=== PATIENT | female | born 1935 | race Caucasian/White ===

== ENCOUNTER → 2016-09-12 | Day surgery (SDC) | payer MEDICARE, OTHER ==
[~2016-09-12] MED LIST: CALCIUM + D 6001 TA1 PO; CALCIUM 500 +1 EAC2 PO; FISH OIL 1,0001 CAP PO; GRALISE300 MG PO; MULTI VITAMIN1 EACH PO; NEURONTIN300 MG PO; PANTOPRAZOLE SO40 MG; VITAMIN B12-FO1 EACH PO
--- NOTE | ~2016-09-12 | OR ---
Unit #: [id number] #: [id number] Patient: MARIKA MARTINEZ [id number] [address] [place], [place] [address] [id number] O MR#: [id number] NAME: MARIKA MARTINEZ. ROOM: Date of Procedure: 09/12/2016 Admission Date: 09/12/2016 Surgeon: Santhosh Millan M.D. : 1935 Attending Physician: Santhosh Millan M.D. Primary Care Physician: Fiorella Mcmahon M.D. OPERATIVE REPORT PRIMARY CARE PHYSICIAN Fiorella Mcmahon M.D. PREOPERATIVE DIAGNOSES The patient has presented for colorectal cancer surveillance. She has personal history of colon polyps. In addition, she has lot of nausea and vomiting and dyspepsia. PROCEDURES PERFORMED Upper gastrointestinal endoscopy and biopsy as well as colonoscopy up to cecum and terminal ileum. POSTOPERATIVE DIAGNOSES For upper endoscopy: 1. The patient had distal esophageal benign stricture which was felt to be nonobstructing. In addition, there was evidence of circumferential esophagitis. 2. Small hiatus hernia. 3. Mild prepyloric antral gastritis. A biopsy was obtained from the antrum for CLOtest. 4. Rest of the examination up to third part of duodenum was normal. For colonoscopy: Mild sigmoid and descending colon diverticulosis. Otherwise, normal examination up to cecum and terminal ileum. The quality of the prep was excellent. RECOMMENDATIONS No further colonoscopy is indicated in view of patient's age. She was started on pantoprazole 40 mg p.o. daily and will be followed up in the office in 3 months' time. SEDATION USED MAC. DESCRIPTION OF PROCEDURE Following detailed explanation of potential risks and complications of an upper endoscopy and a colonoscopy, namely perforation, bleeding, and complication related to sedation, the patient was brought to GI lab and laid in the left lateral decubitus position. Lubricated tip of the Olympus video upper endoscope was passed through the bite block into the proximal esophagus under direct vision. The entire esophageal mucosa was examined. The patient was noted to have distal confluent ulcerative esophagitis as well as early esophageal stricture. In addition, a small Unit #: [id number] #: [id number] Patient: MARIKA MARTINEZ hiatus hernia was noted. The scope was then advanced into the gastric cavity and the latter was insufflated. Mucosa of the fundus, body, and antrum was examined and prepyloric antral erythema erosions were noted indicating antral gastritis. Pylorus was intubated with visualization of the normal duodenal bulb and second and third part of the duodenum. Upon withdrawal and retroflexion; incisura, cardia, and greater curve was examined and biopsy was obtained from the antrum for CLOtest. The scope was then withdrawn in the distal esophagus. The entire esophageal mucosa was examined all the way up to pharynx. No additional findings were noted. The examination table was then turned by 180 degrees and the patient positioned for a colonoscopy. A digital rectal examination was performed, which was normal. Lubricated tip of the Olympus video colonoscope was inserted through the anus and advanced under direct vision. The scope was advanced past rectosigmoid into descending colon. Multiple medium-sized diverticula were seen in this area. The scope tip was then navigated all the way up to cecum with visualization of the ileocecal valve and the appendiceal orifice. Preparation was excellent with good visualization and photodocumentation was obtained. Last several inches of the terminal ileum were also visualized after intubation of the ileocecal valve and appeared normal. Successive segments of the colonic mucosa were examined upon withdrawal and appeared unremarkable. There being no polyps, mass lesions, or AVMs. Other than the scant diverticula seen in the left side, no other abnormalities were noted. The patient did not have any hemorrhoids at the anal verge. The scope was then withdrawn and the patient returned to the recovery area. She tolerated the procedure without any postprocedure complications. ADDENDUM The patient was found to have uncontrolled atrial fibrillation. She seemingly is not aware of this fact. Therefore, a Cardiology consult was obtained prior to the patient being discharged home. Dictated by... Nayeli Oliva TD: 09/12/2016 13:23 JOB #: [id number] OPERATIVE REPORT Page 1 of 1 X Santhosh Millan MD X PROCEDURE OPERATIVE NOTE
--- NOTE | ~2016-09-12 | EKG ---
PATIENT: MARIKA MARTINEZ UNIT #: [id number] Ventricular Rate: 92 BPM Atrial Rate: 85 BPM QRS Duration: 86 ms Q-T Interval: 368 ms QTC Calculation(Bezet): 455 ms Calculated R [place]: 62 degrees Calculated T [place]: 76 degrees Diagnosis Line: Atrial fibrillation with premature ventricular or Diagnosis Line: aberrantly conducted complexes Diagnosis Line: Abnormal ECG Diagnosis Line: No previous ECGs available Diagnosis Line: Confirmed by WINNIE REVELES MD ([id number]) on 09/12/2016 Diagnosis Line: 7:48:24 PM INTERPRETING MD: ABDIRIZAK VACA
--- NOTE | ~2016-09-12 | CO ---
Unit #: [id number] #: [id number] Patient: MARIKA MARTINEZ [id number] [address] [place], [place] [address] [id number] O MR#: [id number] NAME: MARIKA MARTINEZ ROOM: Age: 81 Sex: F Admission Date: 09/12/2016 : 1935 Attending Physician: Santhosh Millan M.D. Primary Care Physician: Fiorella Mcmahon M.D. CONSULTATION REPORT REASON FOR CONSULTATION Atrial fibrillation. HISTORY OF PRESENT ILLNESS This is an 81-year-old white female who was scheduled for an elective EGD and colonoscopy that was normal. She had prior abnormal results a few years ago. During the procedure, the patient was noted to be in atrial fibrillation and a controlled ventricular rate and cardiology was asked to see the patient in the endoscopy recovery. The patient states this a.m. she felt weak, nauseated and vomited once after her prep. She has palpitations on occasion and has noted her heart rate to be irregular in the past. She reports dyspnea when she does activity such as vacuum her floors. Has occasional substernal chest pressure and heaviness that has occurred during the night. Chest pain has never awakened her from sleep. She reports occasional lower extremity edema but no paroxysmal nocturnal dyspnea or orthopnea. She denies a history of hypertension, hyperlipidemia or diabetes. She had a stress test greater than ten years ago that was normal. She has had no prior stroke or bleeding episodes in the past. PAST MEDICAL HISTORY 1. Stress test greater than ten years ago. No details available. 2. Chronic kidney disease. 3. Peripheral neuropathy. 4. Lifelong nonsmoker. PAST SURGICAL HISTORY 1. Tubal ligation. 2. Conization. SOCIAL HISTORY The patient is a . She has never smoked. She denies illicit drug and alcohol use. FAMILY HISTORY Both parents had heart disease. Has a sister who from congestive heart failure. ALLERGIES No known drug allergies. HOME MEDICATIONS 1. Gabapentin 300 mg b.i.d. 2. Calcium 500 plus D, one tablet daily. Unit #: [id number] #: [id number] Patient: MARIKA MARTINEZ 3. Multivitamin, one tablet daily. REVIEW OF SYSTEMS Recent fatigue and weakness that she relates to her colon prep. No weight gain or weight loss. HEENT: No headache, hearing or visual changes or difficulty with swallowing. No dizziness. CARDIOVASCULAR: Has occasional chest pressure and palpitations. No paroxysmal nocturnal dyspnea, orthopnea or leg edema. RESPIRATORY: Has dyspnea on exertion. No cough or hemoptysis. GASTROINTESTINAL: Had recent nausea and vomiting this a.m. No abdominal pain, constipation, melena or hematochezia. EXTREMITIES: Negative for lower extremity edema. PHYSICAL EXAMINATION VITAL SIGNS: Blood pressure 132/74, heart rate 92. GENERAL: This is a thin, 81-year-old white female who is in no acute respiratory distress. NEUROLOGICAL: She is awake, alert and oriented. There are no focal weakness. NECK: Trachea is midline. No thyromegaly or lymphadenopathy. No jugular venous distention. HEART: S1, S2 heart sounds are normal. No murmurs or rubs or clicks. Irregularly irregular rhythm. LUNGS: Clear without rales, rhonchi or wheezing. ABDOMEN: Soft, nontender with bowel sounds present. EXTREMITIES: Without leg edema. SKIN: Warm and dry. DIAGNOSTIC STUDIES LABORATORY: Glucose 152, BUN 12, creatinine 1.0, sodium 126, potassium 4.4, magnesium 2.0, TSH pending. White count 16.1, hemoglobin 14.8, hematocrit 42.5, platelet count is 247. CARDIOVASCULAR: Electrocardiogram - atrial fibrillation and controlled ventricular rate of 92 beats/minute. There is nonspecific ST wave abnormality. IMPRESSION 1. Atrial fibrillation, age undetermined, and controlled ventricular rate. 2. Hyponatremia. 3. Status post EGD/colonoscopy normal. 4. History of peripheral neuropathy. PLAN 1. Cardiology was asked to see the patient in endoscopy because of atrial fibrillation. The patient's rate is currently controlled. There is questionable (1) of atrial fibrillation. Will start the patient on metoprolol 12.5 mg b.i.d. 2. The patient has a CHADS2-VASc score of 3 and will need group home anticoagulation. She has been given Xarelto 15 mg to start today. Samples for six weeks have been given in the office. 3. Because of hyponatremia, will start normal saline at 150 mg/hour over three hours. 4. The patient could be discharged home after IV fluid infused, is stable. 5. Follow up with Dr. Lyle on October 23 at 1:15 for an Unit #: [id number] #: [id number] Patient: MARIKA MARTINEZ L echocardiogram and 2:15 for appointment. 6. Will need to obtain cost of Xarelto for patient. Dictated by... Tigre Bell A.P.R.N. for Nayeli Briceño/luis m TD: 09/13/2016 08:22 JOB #: [id number] CONSULTATION REPORT Page 1 of 1 X Tigre Bell APRN X CONSULTATION REPORT
[2016-09-12 13:57] LABS: BASOPHIL# 0.1 X10e3 (0-0.3); BASOPHIL% 0.3 % (0-2.5); HEMATOCRIT 42.5 % (35.0-45.0); HEMOGLOBIN 14.8 gm/dL (12.0-16.0); LYMPHOCYTE# 1.2 X10e3 (1.0-3.5); LYMPHOCYTE% 7.5 % (17.0-45.0); MEAN CELL VOLUME 91.9 FL (83-96); MEAN CORPUSCULAR HEMOGLOBIN 31.9 PG (28-34); MEAN CORPUSCULAR HGB CONC 34.8 g/dL (30-36); MEAN PLATELET VOLUME 9.3 FL (6.5-11.5); MONOCYTE# 0.7 X10e3 (0-1.0); MONOCYTE% 4.3 % (3.0-12.0); NEUTROPHIL# 14.1 X10e3 (1.5-7.1); NEUTROPHIL% 87.9 % (40-75); PLATELET COUNT 247 X10e3 (140-420); RED BLOOD COUNT 4.62 X10e (3.90-5.30); RED CELL DISTRIBUTION WIDTH 13.1 % (11.0-15.5); WHITE BLOOD COUNT 16.1 X10e3 (4.0-10.5)
[2016-09-12 13:58] LABS: DIFF IND YES
[2016-09-12 14:17] LABS: CALCIUM SERUM 9.4 mg/dL (8.4-10.2); GLOM FILT RATE Estimated 52.4 mL/min (>60); POTASSIUM 4.4 mmol/L (3.5-5.1)
[2016-09-12 14:29] LABS: PLATELET ESTIMATE NORMAL (NORMAL)
[2016-09-12 17:20] LABS: THYROID STIMULATING HORMONE 1.73 uIU/ml (0.34-5.60)
[2016-09-12 17:27] LABS: FREE THYROXIN (T4) 0.96 ng/dL (0.58-1.64)
== END | disposition home or self-care (01) ==
LOC: COPS 06:28
PROVIDERS: Internal Medicine Gastroenterology
DX: K57.30 Diverticulosis of large intestine without perforation or abscess without bleeding (principal); K22.10 Ulcer of esophagus without bleeding; K22.2 Esophageal obstruction; K44.9 Diaphragmatic hernia without obstruction or gangrene; K29.70 Gastritis, unspecified, without bleeding; I48.91 Unspecified atrial fibrillation; N18.9 Chronic kidney disease, unspecified; G62.9 Polyneuropathy, unspecified; E87.1 Hypo-osmolality and hyponatremia; Z86.010 Personal history of colon polyps; Z79.899 Other long term (current) drug therapy; Z98.51 Tubal ligation status
CPT/HCPCS: 80048; 83735; 84439; 84443; 85025; 93005; J2405

== ENCOUNTER → 2016-09-26 | Outpatient (CLI) | payer MEDICARE, OTHER ==
--- NOTE | ~2016-09-26 | CT57 ---
[facility]. [facility] A Service of [facility] RADIOLOGY TEXT RESULTS PATIENT: MARIKA MARTINEZ LOCATION: [facility] : [birth year] UNIT #: [id number] AGE: [address]: Nicho Tinoco MD SEX: F ORDER DR: [id number] [address] [address] [id number] O MR#: [id number] [facility] #: [id number] NAME: MARIKA MARTINEZ : 1935 SEX: F STUDY DATE/TIME: 09/26/2016 11:01 UNIT: [facility] ROOM: STUDY DESCRIPTION: CT Chest Wo Cont Attending Physician: Nicho Tinoco M.D. Referring Physician: Nicho Tinoco M.D. Ordering Physician: Fiorella Mcmahon M.D. Primary Care Physician: Fiorella Mcmahon M.D. MEDICAL IMAGING REPORT This report is preliminary unless electronic signature is present. EXAMINATION CT chest without contrast. DATE 09/26/2016 HISTORY 81-year-old female with questionable pulmonary nodule on recent chest x-ray from 09/20/[address] followup was recommended. COMPARISON PA and lateral chest radiograph, 09/20/2016. No prior CT chest for comparison. PROCEDURE 2 mm noncontrast axial images through the chest. Sagittal and coronal reformatted images were obtained. This CT exam was performed with one or more of the following radiation dose reduction techniques: automatic exposure control, adjustment of mA and/or kV according to patient size, and iterative reconstruction. FINDINGS No suspicious pulmonary nodules are identified. The opacity described in the left hemithorax on recent chest x-ray likely represents prominence of the pericardial fat pad at this location. Mild emphysematous changes are present, and there is chronic change in the posterior superior lower lobes and within the lung apices. There is a moderate esophageal hiatal hernia. Calcified granuloma is present within the right lower lobe. Calcified granulomatous changes in the mediastinum. Normal heart size. Cyst is seen within the liver. Remainder of included upper abdominal organs are within normal limits. No acute or suspicious osseous abnormalities. [facility] A Service of [facility] RADIOLOGY TEXT RESULTS PATIENT: MARIKA MARTINEZ LOCATION: [facility] : 33 UNIT #: [id number] AGE: [address]: Nicho Tinoco MD SEX: F ORDER DR: IMPRESSION 1. No suspicious pulmonary nodules. The opacity described on recent chest radiograph likely represents prominence of the left anterior pericardial fat pad. 2. Mild emphysema and mild scarring in the upper lung zones. 3. Not mentioned in the body of the report, there is mild bronchial ectasis and bronchial wall thickening within the right middle lobe, which may represent changes of small airways infectious - inflammatory change. 4. Moderate sized esophageal hiatal hernia. 5. Hepatic cyst. Dictated by... Ayaka Huerta M.D. THIS IS AN ELECTRONICALLY VERIFIED REPORT Ayaka Huerta M.D. at 09/27/2016 12:11 PM ALISON/manuel TD: 09/26/2016 18:04 JOB #: [id number] MEDICAL IMAGING REPORT Page 1 of 1
[2016-09-26 08:15] LABS: POC - CREATININE 1.19 mg/dL (0.44-1.03)
== END | disposition home or self-care (01) ==
LOC: SCT 08:10
PROVIDERS: Family Medicine
DX: R91.1 Solitary pulmonary nodule (principal); J43.9 Emphysema, unspecified; J98.4 Other disorders of lung
CPT/HCPCS: 71250; 82565